=== PATIENT | male | born 1975 | race Caucasian/White ===

== ENCOUNTER 2021-10-30 17:09 | Emergency (ER) | payer SELFPAY ==
[~2021-10-30] VITALS: Ht 180.3 cm; Wt 102.0 kg
[2021-10-30 17:33] VITALS: BP 131/81
[2021-10-30 17:45] VITALS: BP 136/89
[2021-10-30 18:00] VITALS: BP 131/89
[2021-10-30] MEDS ORDERED: KEFLEX500 MG PO ×2 (18:31→18:35)
== END 2021-10-30 18:36 | disposition home or self-care (01) | DRG 605 ==
LOC: ED 17:09
PROC: 0HQ0XZZ Repair Scalp Skin, External Approach (ICD-10-PCS; principal; 2021-10-30)
DX: S01.01XA Laceration without foreign body of scalp, initial encounter (principal); W20.8XXA Other cause of strike by thrown, projected or falling object, initial encounter; Y92.009 Unspecified place in unspecified non-institutional (private) residence as the place of occurrence of the external cause; F17.210 Nicotine dependence, cigarettes, uncomplicated

== ENCOUNTER 2021-11-03 07:57 | Emergency (ER) | payer SELFPAY ==
[~2021-11-03] VITALS: Ht 180.3 cm; Wt 95.0 kg
[~2021-11-03 07:57] MED LIST: KEFLEX500 MG PO
[2021-11-03 08:05] VITALS: BP 150/95
[2021-11-03 08:15] VITALS: BP 139/85
== END 2021-11-03 08:34 | disposition home or self-care (01) | DRG 950 ==
LOC: ED 07:57
DX: S01.01XD Laceration without foreign body of scalp, subsequent encounter (principal); F17.210 Nicotine dependence, cigarettes, uncomplicated; X58.XXXD Exposure to other specified factors, subsequent encounter

== ENCOUNTER 2021-12-15 03:11 | Inpatient (IN) | payer SELFPAY ==
[2021-12-15] VITALS (31 sets, daily range): BP systolic 101–152; BP diastolic 63–96
[~2021-12-15] VITALS: Ht 180.3 cm; Wt 102.0 kg
[2021-12-15 03:50] LABS: HEMATOCRIT 50.9 % (39.0-50.0); HEMOGLOBIN 17.6 g/dl (14.0-18.0); IMMATURE GRANULOCYTES 0.2 % (0.0-5.0); MEAN CELL VOLUME 85.7 fL CALC (80.0-100.0); MEAN CORPUSCULAR HGB 29.6 pG CALC (26.0-32.0); MEAN CORPUSCULAR HGB CONC 34.6 g/dL CAL (32.0-36.0); NEUT# 10.5 thou/uL (1.82-7.42); RED BLOOD COUNT 5.94 mill/uL (4.70-6.10); RED CELL DISTRI WIDTH 12.9 % (11.5-15.5)
[2021-12-15] MEDS ORDERED: OMEPRAZOLE20 MG PO (03:52)
[2021-12-15] MEDS ORDERED: PEPTO-BISM262 MG/15 PO (03:53)
[2021-12-15 03:59] LABS: ALBUMIN 4.9 g/dL (3.2-5.0); ALKALINE PHOSPHATASE 107 u/l (38-126); ANION GAP 16 (6-22 (CALC)); BILIRUBIN, TOTAL 0.8 mg/dL (0.0-1.4); BUN 15 mg/dL (9-20); BUN/CREATININE RATIO 16 (12-20 (CALC)); CARBON DIOXIDE 28 mmol/l (22-30); CHLORIDE 103 mmol/l (95-108); CREATININE 0.9 mg/dL (0.7-1.3); GFR FOR AFR.AMER. > 60 ML/MIN (>=60 (CALC)); GFR OTHER RACES > 60 ML/MIN (>=60 (CALC)); LIPASE 42 u/l (23-300); POTASSIUM 4.6 mmol/l (3.5-5.1); SGOT/AST 32 u/l (17-59); SODIUM 142 mmol/l (137-146); TOTAL PROTEIN 9.1 g/dL (6.3-8.2)
[2021-12-15 16:00] LABS: URINE BILIRUBIN - DIPSTICK NEGATIVE (NEGATIVE); URINE BLOOD DIPSTICK MODERATE (NEGATIVE); URINE COLOR YELLOW; URINE GLUCOSE - DIPSTICK NEGATIVE (NEGATIVE); URINE KETONE TRACE mg/dL (NEGATIVE); URINE LEUK ESTERASE NEGATIVE (NEGATIVE); URINE PH 5.5 (4.5-8.0); URINE PROTEIN - DIPSTICK 30 mg/dL (NEG-TRACE); URINE SPECIFIC GRAVITY 1.025; URINE UROBILINOGEN - DIPSTICK 0.2 E.U./dL (0.2)
[2021-12-15 16:02] LABS: URINE NITRITE - DIPSTICK NEGATIVE (Negative)
[2021-12-15 16:18] LABS: URINE CALCIUM OXALATE CRYSTALS FEW lpf
[2021-12-16 00:31] VITALS: BP 92/59
[2021-12-16 03:40] VITALS: BP 99/60
[2021-12-16 05:27] LABS: IMMATURE GRANULOCYTES 0.2 % (0.0-5.0); MEAN CELL VOLUME 90.3 fL CALC (80.0-100.0); MEAN CORPUSCULAR HGB CONC 33.3 g/dL CAL (32.0-36.0); NEUT# 7.97 thou/uL (1.82-7.42); RED BLOOD COUNT 4.53 mill/uL (4.70-6.10); RED CELL DISTRI WIDTH 13.5 % (11.5-15.5)
[2021-12-16 05:39] LABS: HEMATOCRIT 40.9 % (39.0-50.0); HEMOGLOBIN 13.6 g/dl (14.0-18.0)
[2021-12-16 05:49] LABS: ALKALINE PHOSPHATASE 64 u/l (38-126); ANION GAP 9 (6-22 (CALC)); BILIRUBIN, TOTAL 1.1 mg/dL (0.0-1.4); BUN 19 mg/dL (9-20); BUN/CREATININE RATIO 17 (12-20 (CALC)); CARBON DIOXIDE 32 mmol/l (22-30); CHLORIDE 102 mmol/l (95-108); CREATININE 1.2 mg/dL (0.7-1.3); GFR FOR AFR.AMER. > 60 ML/MIN (>=60 (CALC)); GFR OTHER RACES > 60 ML/MIN (>=60 (CALC)); POTASSIUM 3.7 mmol/l (3.5-5.1); SGOT/AST 26 u/l (17-59); SODIUM 139 mmol/l (137-146)
[2021-12-16 05:53] LABS: ALBUMIN 3.5 g/dL (3.2-5.0); TOTAL PROTEIN 6.5 g/dL (6.3-8.2)
[2021-12-16 07:16] VITALS: BP 108/64
[2021-12-16 12:00] VITALS: BP 109/67
[2021-12-16 15:27] VITALS: BP 101/67
[2021-12-16 18:50] VITALS: BP 105/70
[2021-12-17] VITALS: BP 120/75
[2021-12-17 02:25] VITALS: BP 120/75
[2021-12-17 04:01] VITALS: BP 131/77
[2021-12-17 06:47] VITALS: BP 130/75
[2021-12-17 14:33] VITALS: BP 142/75
[2021-12-17 18:39] VITALS: BP 112/64
[2021-12-17 19:52] LABS: HEMATOCRIT 39.7 % (39.0-50.0); HEMOGLOBIN 13.4 g/dl (14.0-18.0); MEAN CELL VOLUME 88.6 fL CALC (80.0-100.0); MEAN CORPUSCULAR HGB 29.9 pG CALC (26.0-32.0); MEAN CORPUSCULAR HGB CONC 33.8 g/dL CAL (32.0-36.0); RED BLOOD COUNT 4.48 mill/uL (4.70-6.10); RED CELL DISTRI WIDTH 12.9 % (11.5-15.5)
[2021-12-17 19:59] LABS: ANION GAP 9 (6-22 (CALC)); BUN 10 mg/dL (9-20); BUN/CREATININE RATIO 14 (12-20 (CALC)); CARBON DIOXIDE 28 mmol/l (22-30); CHLORIDE 106 mmol/l (95-108); CREATININE 0.7 mg/dL (0.7-1.3); GFR FOR AFR.AMER. > 60 ML/MIN (>=60 (CALC)); GFR OTHER RACES > 60 ML/MIN (>=60 (CALC)); POTASSIUM 4.2 mmol/l (3.5-5.1); SODIUM 139 mmol/l (137-146)
[2021-12-18 04:13] VITALS: BP 104/73
[2021-12-18 06:20] VITALS: BP 109/72
[2021-12-18] MEDS ORDERED: PERCOCET 5/325M1 TAB PO (13:14)
[2021-12-18] MEDS ORDERED: AMOX/K CLAV875 M1 PO (13:16)
== END 2021-12-18 14:30 | disposition home or self-care (01) | DRG 345 ==
LOC: ED 03:11 → ED-I 07:25 → ED 07:46 → MS2 07:47
PROVIDERS: Family Medicine; ADMIT Surgery; ATTEND Surgery
PROC: 0DC80ZZ Extirpation of Matter from Small Intestine, Open Approach (ICD-10-PCS; principal; 2021-12-15)
DX: K56.3 Gallstone ileus (principal); K82.3 Fistula of gallbladder; F17.200 Nicotine dependence, unspecified, uncomplicated; Z20.822 Contact with and (suspected) exposure to COVID-19
CPT/HCPCS: J0131; Q9967

== ENCOUNTER 2022-10-03 11:20 | Emergency (ER) | payer SELFPAY ==
[~2022-10-03] VITALS: Ht 180.3 cm; Wt 101.4 kg
[~2022-10-03 11:20] MED LIST changes: +AMOX/K CLAV875 M1 PO; +OMEPRAZOLE20 MG PO; +PEPTO-BISM262 MG/15 PO; +PERCOCET 5/325M1 TAB PO
[2022-10-03 11:40] VITALS: BP 115/73
[2022-10-03] MEDS ORDERED: AMOX/K CLAV875 M1 PO (12:08)
[2022-10-03 12:50] VITALS: BP 115/73
== END 2022-10-03 12:50 | disposition home or self-care (01) | DRG 816 ==
LOC: ED 11:20
DX: R59.0 Localized enlarged lymph nodes (principal); F17.210 Nicotine dependence, cigarettes, uncomplicated